=== PATIENT | male | born 1965 | race Caucasian/White ===

== ENCOUNTER 2017-02-27 11:57 | Emergency (ER) | payer OTHER ==
[~2017-02-27 11:57] MED LIST: HYDR-3533 PO
[2017-02-27 12:39] VITALS: BP 168/81; PULSE 94; RESP 20; O2SAT 97
[2017-02-27 14:27] VITALS: BP 141/74; PULSE 91; RESP 20; O2SAT 96
[2017-02-27] MEDS ORDERED: HYDR25TA5 PO (14:29)
[2017-02-27] MEDS ORDERED: LOSA100T PO (14:29)
[2017-02-27] MEDS ORDERED: AMLO5TAB2 PO (14:29)
--- NOTE | 2017-02-27 14:37 | PD ---
HPI Chief Complaint: Musculoskeletal Complaint Time Seen by Provider: 14:31 Travel History International Travel<30 days: No Contact w/Intl Traveler<30days: No Traveled to known affect area: No History of Present Illness HPI Patient comes in complaining of left shoulder pain ongoing for "a while now" getting worse over the past 2 weeks. Patient is a sharp stabbing pain in his left shoulder that started radiating across his back into his right shoulder. Patient denies any known injury, fevers, nausea, vomiting, chest pain, shortness of breath, or headaches. Patient states he has not seen orthopedics for this but has had multiple issues with gout in various joints over the years. Pain is worse with certain movement causing some decreased range of motion continues to get progressively worse. Patient denies anything making symptoms better. PFSH Past Medical History Anxiety: Yes Cardiovascular Problems: Yes Hypertension: Yes Past Surgical History Abdominal Surgery: Yes (HERNIA) Eye Surgery: Yes (X 5) Social History Alcohol Use: Yes (SOCIALLY) Tobacco Use: Yes (1 PPD) Substance Use: No Allergies-Medications (Allergen,Severity, Reaction): Coded Allergies: No Known Allergies (Verified Adverse Reaction, Unknown, 02/27/17) Reported Meds & Prescriptions Reported Meds & Active Scripts Active Flexeril (Cyclobenzaprine HCl) 10 Mg Tab 10 Mg PO Q8HR PRN Medrol Dosepak (Methylprednisolone) 4 Mg Dspk 4 Mg PO DIRECTED Per Pharmacist direction Reported Amlodipine (Amlodipine Besylate) 5 Mg Tab 5 Mg PO DAILY Losartan (Losartan Potassium) 100 Mg Tab 100 Mg PO DAILY Hydrochlorothiazide 25 Mg Tab 25 Mg PO DAILY Review of Systems Except as stated in HPI: all other systems reviewed are Neg Physical Exam Narrative GENERAL: Well-developed, overly nourished, in no acute distress, and non-ill appearing. SKIN: Focused skin assessment warm and dry. HEAD: Atraumatic. Normocephalic. EYES: Pupils equal and round. EOMI. No scleral icterus. No injection or drainage. ENT: No nasal bleeding or discharge. Mucous membranes pink and moist. NECK: Trachea midline. Supple. No nuclear rigidity. CARDIOVASCULAR: Radial pulses 2+, intact, and equal bilaterally. Capillary refill less than 2 seconds. RESPIRATORY: No accessory muscle use. No respiratory distress. MUSCULOSKELETAL: No obvious deformities. No clubbing. No cyanosis. No edema. Decreased range of motion left shoulder secondary to pain. Shoulder: Sensation equal BL deltoid muscles. Pulses equal BL distal to injury. Capillary refill less than 2 seconds distal to injury and equal BL. FROM distal to injury and equal BL. Strength distal to injury equal BL. NV intact distal to injury equal BL. Flexion and extension of thumb equal BL. Equal strength and movement with abduction/adductions of BL fingers. [employer] strength equal BL. Patient is point tenderness over the anterior aspect of left shoulder near left AC joint. NEUROLOGICAL: Awake and alert. No obvious cranial nerve deficits. Motor grossly within normal limits. Normal speech. PSYCHIATRIC: Appropriate mood and affect; insight and judgment normal. Data Data Last Documented VS Vital Signs Date Time Temp Pulse Resp B/P (MAP) Pulse Ox O2 Delivery O2 Flow Rate FiO2 02/27/17 14:54 91 16 135/79 (97) 96 Orders Orders Dexamethasone Inj (Decadron Inj) (02/27/17 14:45) Cyclobenzaprine (Flexeril) (02/27/17 14:45) Ed Discharge Order (02/27/17 14:32) Electrocardiogram (02/27/17 13:00) [facility] Medical Decision Making Medical Screen Exam Complete: Yes Emergency Medical Condition: Yes Interpretation(s) EKG reviewed by Dr. Marino shows sinus rhythm with ventricular rate of 92. No STEMI. Differential Diagnosis Fracture, sprain, contusion, bursitis, frozen shoulder, tendinitis, gout, pseudogout Narrative Course There is no clinical evidence for fracture. There is no clinical evidence to suspect bony injury or infectious process by exam or history. No obvious ligamental injury or internal derangement is noted at this time. The distal extremity appears neurovascularly intact, without evidence of neurovascular injury nor compartment syndrome. Tendon exam also was intact. The effected limb was splinted. The patient was discharged on pain medication along with sprain and splint care instructions and given warnings for vascular compromise. The patient is to follow up with Orthopedics. The patient agrees with plan. Patient in no obvious distress upon re-evaluation. She was offered x-rays but declined at this time. Patient was asked if they wanted to speak to my attending, which the patient did not wish to do at this time. Any questions/ concerns in reference to patient diagnosis/condition discussed and clarified prior to patient's discharge. Reinforced sheer importance of close follow up with patient's primary physician or primary care clinic and/or orthopedic. Instructed patient to return to ED immediately, if symptoms return/worsen. Patient showed understanding of above instructions. Further instructions and recommendations were detailed in discharge paperwork. Patient ambulated without difficulty out of ED at discharge. Diagnosis Primary Impression: Left shoulder pain Qualified Codes: M25.512 - Pain in left shoulder Referrals: Mitesh Bernabe MD Patient Instructions: Adhesive Capsulitis (ED), General Instructions, Shoulder Pain (ED) Additional Instructions: Follow-up with your primary care physician and/or orthopedic in 3-5 days for reevaluation. Take all medication as prescribed. Return to the emergency department if symptoms get worse. Med/Other Pt SpecificInfo: Prescription(s) given Scripts Cyclobenzaprine (Flexeril) 10 Mg Tab 10 MG PO Q8HR Y for MUSCLE PAIN, #12 TAB 0 Refills Prov: Reggie Marino MD 02/27/17 Methylprednisolone Dosepak (Medrol Dosepak) 4 Mg Dspk 4 MG PO DIRECTED, #1 DSPK 0 Refills Per Pharmacist direction Prov: Reggie Marino MD 02/27/17 Disposition: 01 DISCHARGE HOME Condition: Stable Homero Chris Feb 27, 2017 14:37
[2017-02-27] MEDS ORDERED: MEDR4PAK PO (14:38)
[2017-02-27] MEDS ORDERED: CYCL10TA PO (14:38)
[2017-02-27] MEDS ORDERED: DEXAMETHASONE SOD PHOS 20 MG/5 ML VIAL IM ONE (14:45)
[2017-02-27] MEDS ORDERED: CYCLOBENZAPRINE HCL 10 MG TAB PO ONE (14:45)
[2017-02-27 14:54] VITALS: BP 135/79
--- NOTE | 2017-02-28 18:22 | EKG ---
Date Performed: 02/27/2017 Time Performed: 13:00:36 PTAGE: 51 years EKG: Sinus rhythm POSSIBLE LEFT ATRIAL ENLARGEMENT POSSIBLE RIGHT VENTRICULAR CONDUCTION DELAY BORDERLINE ECG NO PREVIOUS TRACING DOCTOR: Aretha Arroyo Interpretating Date/Time 02/28/2017 18:20:16
== END 2017-02-27 14:57 | disposition home or self-care (01) ==
LOC: PHEFT 11:57
DX: M25.512 Pain in left shoulder (principal); I10 Essential (primary) hypertension; F17.200 Nicotine dependence, unspecified, uncomplicated
CPT/HCPCS: 93005; 96372; 99284; J1100